=== PATIENT | female | born 1955 | race Caucasian/White ===

== ENCOUNTER 2019-02-01 11:46 | Emergency (ER) | payer MEDICARE, MEDICAID ==
[~2019-02-01] VITALS: Ht 167.6 cm; Wt 79.4 kg
[~2019-02-01 11:46] MED LIST: PREG25CA PO
[2019-02-01] MEDS ORDERED: QUETIAPINE FUMARATE 25 MG TABLET ONE (12:01)
[2019-02-01] MEDS: QUETIAPINE FUMARATE 100 MG TABLET PO SCH (12:02)
--- NOTE | 2019-02-01 12:06 | NUR ---
Patient discharged to home in stable condition. Written and verbal after care instructions given. Patient verbalizes understanding of instruction.
[2019-02-01 12:07] VITALS: BP 118/60
== END 2019-02-01 12:08 | disposition home or self-care (01) ==
LOC: ER 11:46
DX: F41.9 Anxiety disorder, unspecified (principal); G10 Huntington's disease; F17.210 Nicotine dependence, cigarettes, uncomplicated; Z90.89 Acquired absence of other organs

== ENCOUNTER 2019-02-01 23:11 | Emergency (ER) | payer MEDICARE, MEDICAID ==
[~2019-02-01] VITALS: Ht 172.7 cm; Wt 63.5 kg
--- NOTE | 2019-02-01 23:45 | NUR ---
biba for c/o confusion .
[2019-02-01] MEDS ORDERED: diphenhydrAMINE HCL 50 MG/ML VIAL ONE (23:50)
[2019-02-02] MEDS ORDERED: diphenhydrAMINE HCL 50 MG/ML VIAL IM ONE
--- NOTE | 2019-02-02 00:13 | NUR ---
FAMILY IS WILLING TO SPEAK TO THE MD BEFORE RECEIVING THE MEDICATION (BENADRYL) . DR BLACK MADE AWARE,
[2019-02-02] MEDS ORDERED: oxyCODONE/APAP (5/325 MG) 1 UDTAB TABLET PO ONE (00:30)
[2019-02-02] MEDS ORDERED: ONDANSETRON 4 MG TAB.RAPDIS SL ONE ×2 (00:30→01:00)
[2019-02-02] MEDS ORDERED: LORAZEPAM 1 MG TABLET PO ONE (00:30)
[2019-02-02] MEDS ORDERED: LORAZEPAM 1 MG TABLET ONE (00:32)
[2019-02-02] MEDS ORDERED: ONDANSETRON 4 MG TAB.RAPDIS ONE (00:32)
[2019-02-02] MEDS ORDERED: oxyCODONE/APAP (5/325 MG) 1 UDTAB TABLET ONE (00:32)
[2019-02-02 00:44] LABS: BASOPHILS % (AUTO) 0.6 % (0.0-2.0); EOSINOPHILS % (AUTO) 1.6 % (0.0-6.0); HEMATOCRIT 40 % (33-45); HEMOGLOBIN 13.3 g/dL (11.5-14.8); LYMPHOCYTES # (AUTO) 1.8 /CMM (0.8-4.8); LYMPHOCYTES % (AUTO) 21.7 % (20.0-44.0); MEAN CORPUSCULAR HGB CONC 33 g/dl (31.0-36.0); MEAN CORPUSCULAR VOLUME 88 fL (82-100); MONOCYTES # (AUTO) 0.5 /CMM (0.1-1.30); MONOCYTES % (AUTO) 6.2 % (2.0-12.0); NEUTROPHILS # (AUTO) 5.7 /CMM (1.8-8.9); NEUTROPHILS % (AUTO) 69.9 % (43.0-81.0); PLATELET COUNT (AUTO) 233 /CMM (150-450); RED BLOOD CELL COUNT(AUTO) 4.56 MIL/uL (4.0-5.2); WHITE BLOOD COUNT (AUTO) 8.2 K/uL (4.3-11.0)
[2019-02-02 00:51] LABS: CALCIUM, SERUM 9.1 mg/dL (8.5-10.1); CARBON DIOXIDE 27 mmol/L (21-32); CHLORIDE 107 mmol/L (98-107); CREATININE 0.7 mg/dL (0.6-1.3); GLUCOSE 111 mg/dL (74-106); POTASSIUM 3.9 mmol/L (3.5-5.1); SODIUM SERUM 142 mmol/L (136-145); UREA NITROGEN, BLOOD 18 mg/dL (7-18)
[2019-02-02 00:57] LABS: ALANINE AMINOTRANSFERASE 20 U/L (12-78); ALBUMIN 3.2 g/dL (3.4-5.0); ALKALINE PHOSPHATASE 70 U/L (46-116); ASPARTATE AMINOTRANSFERASE 11 U/L (15-37); BILIRUBIN,DIRECT 0.1 mg/dL (0.0-0.2); BILIRUBIN,TOTAL 0.2 mg/dL (0.2-1.0); TOTAL PROTEIN, SERUM 6.7 g/dL (6.4-8.2)
[2019-02-02 00:58] LABS: ACETAMINOPHEN 0 ug/ml (10-30); ALCOHOL, BLOOD < 3 mg/dL (0-0); SALICYLATE 1.2 mg/dL (2.8-20.0)
[2019-02-02 01:15] LABS: THYROID STIMULATING HORMONE 5.826 uIU/mL (0.358-3.74)
--- NOTE | 2019-02-02 01:26 | NUR ---
Patient does not wish to proceed with medical care recommended by Dr. BLACK. Patient/ family given information related to possible complications, up to and including , which could occur as a result of leaving the hospital at this time. Patient/ dtr verbalized understanding of risks involved due to leaving against medical advice. dtr has signed AMA form.
[2019-02-02 01:28] VITALS: BP 131/81
== END 2019-02-02 01:29 | disposition left against medical advice (07) ==
LOC: ER 23:12
DX: F41.9 Anxiety disorder, unspecified (principal); G24.9 Dystonia, unspecified; F17.200 Nicotine dependence, unspecified, uncomplicated; Z90.89 Acquired absence of other organs; Z79.899 Other long term (current) drug therapy
CPT/HCPCS: 36415; 80048; 80076; 80307; 80329; 84443; 85025; 96372; 99284; G0480; J1200; Q0162